=== PATIENT | female | born 1980 | race Caucasian/White ===

== ENCOUNTER 2017-04-14 07:54 | Emergency (ER) | payer OTHER ==
[~2017-04-14] VITALS: Ht 165.1 cm; Wt 90.7 kg
[~2017-04-14 07:54] MED LIST: ACETAMINOPHEN-1 EAC2 PO; CLARITIN10 MG PO; DOCUSATE SODIU100 MG PO; LAMICTAL; PAXIL; PROVENTIL3 ML/2.5 M IH; PULMICORT1 MG/2 ML IH; RESTORIL30 M1 PO; SINGULAIR 10MG10 MG PO; ZITHROMAX TRI-500 MG PO; ZOLOFT100 MG
[2017-04-14] MEDS ORDERED: EMETROL ORAL S118 ML (08:07)
[2017-04-14] MEDS ORDERED: CLONAZEPAM1 MG (08:08)
== END 2017-04-14 17:03 | disposition home or self-care (01) ==
LOC: ER 07:54
DX: J32.8 Other chronic sinusitis (principal); K29.70 Gastritis, unspecified, without bleeding

== ENCOUNTER 2017-04-21 08:50 | Outpatient (CLI) | payer OTHER ==
[~2017-04-21 08:50] MED LIST changes: +CLONAZEPAM1 MG; +EMETROL ORAL S118 ML
== END 2017-04-21 08:52 | disposition home or self-care (01) ==
LOC: RAD 08:50
DX: M50.30 Other cervical disc degeneration, unspecified cervical region (principal); Z98.1 Arthrodesis status

== ENCOUNTER 2017-05-13 09:58 | Outpatient (CLI) | payer OTHER | END 2017-05-13 10:10 | disposition home or self-care (01) | LOC: MAMO-SONO 09:58 | DX: Z12.31 Encounter for screening mammogram for malignant neoplasm of breast (principal); N63.10 Unspecified lump in the right breast, unspecified quadrant; N63.20 Unspecified lump in the left breast, unspecified quadrant; N64.4 Mastodynia; N60.11 Diffuse cystic mastopathy of right breast ==

== ENCOUNTER 2017-07-13 21:09 | Emergency (ER) | payer OTHER ==
[~2017-07-13] VITALS: Ht 165.1 cm; Wt 86.2 kg
[2017-07-14] MEDS ORDERED: PEPCID40 MG PO (03:06)
[2017-07-14] MEDS ORDERED: ZOFRAN4 MG PO (03:06)
[2017-07-14] MEDS ORDERED: LEVSIN/SL0.125 MG SL (03:06)
== END 2017-07-14 03:18 | disposition home or self-care (01) ==
LOC: ER 21:09
DX: K52.89 Other specified noninfective gastroenteritis and colitis (principal)